=== PATIENT | male | born 1960 | race Caucasian/White ===

== ENCOUNTER 2020-07-05 14:52 | Emergency (ER) | payer BC, SELFPAY ==
[2020-07-05 15:00] VITALS: BP 168/88; PULSE 82; RESP 18; TEMP 36.2; O2SAT 96; BMI 23.1
--- NOTE | 2020-07-05 15:08 | XR_ITS ---
WS: [id number] Left hand, 3 views, 07/05/2020 Clinical Data: crush injury - tendon injury left 5th digit Comparison: None. Findings: No fractures or dislocations are seen. The soft tissues are unremarkable. The joint spaces are normal There is a small radiopaque foreign body adjacent to the pisiform. The patient's ring obscures minima l detail over the left fourth proximal phalanx. XR/XR hand LT min 3V* [id number] Impression: Negative left hand.
[2020-07-05] MEDS: tetanus-dipt-pertussis 0.5 mL SDV IM (16:06)
--- NOTE | 2020-07-05 16:47 | W.ED.WOUNDLC ---
HPI - Wound/Laceration General: Chief Complaint: Wound/Laceration Stated Complaint: left hand smash Time Seen by Provider: 07/05/20 15:14 Source: patient Mode of arrival: ambulatory Limitations: no limitations History of Present Illness: HPI narrative: 60 year old male presents with left digit laceration - reports was at work when tractor tire fell on his left hand sustaining a crush injury. He presents with a large laceration to the left fifth digit -states was wearing a glove at time of the injury. Onset (ago): minute(s) (30) Place: work Patient tetanus UTD: No Context: accidental Associated symptoms: Reports no associated symptoms; Denies chills, fever(s), nausea or vomiting Treatments prior to arrival: bandage Review of Systems General: Reports: 10 or more systems reviewed and unremarkable except in HPI and below Const: Denies: fever(s), chills or diaphoresis Eyes: Denies: blurry vision or eye redness ENMT: Denies: throat pain, dental pain or disequilibrium Card: Denies: chest pain, palpitations or irregular heart rhythm Resp: Denies: dyspnea, productive cough, non-productive cough or wheezing GI: Denies: abdominal pain, nausea or vomiting : Denies: dysuria Musc: Reports: extremity pain (left 5th digit); Denies: neck pain or back pain Skin/Breast: Denies: rash or pruritus Neuro: Denies: headache(s), weakness in extremities or behavioral changes Psych: Denies: anxiety or depression Leon/Lymph: Denies: easy bruising Physical Exam Const: COMMON NORMALS: no acute distress, patient oriented x3, healthy appearing and alert GENERAL APPEARANCE: cooperative, comfortable and well hydrated HENMT: COMMON NORMALS: normocephalic, Normal external nose present and moist oral mucous membranes HEAD & SCALP: normocephalic NOSE: Normal external nose present Eye: COMMON NORMALS: Equal, round and reactive pupils present and EOMs intact bilaterally GENERAL EYE: appearance normal, both eyes and all related structures PUPIL: Yes Equal, round and reactive pupils present Neck/C-Spine: COMMON NORMALS: full ROM and no lymphadenopathy GENERAL: Yes normal visual inspection and Yes trachea midline CERVICAL SPINE: Yes cervical ROM normal Lymph: LYMPHATIC: no lymphadenopathy noted Chest: COMMONS NORMALS: normal inspection of the chest Resp: COMMON NORMALS: normal respiratory effort and clear to auscultation bilaterally AUSCULTATION: clear to auscultation bilaterally Cardio: COMMON NORMALS: regular rhythm, S1 normal heart sound present and S2 normal heart sound present RHYTHM: regular rhythm HEART SOUNDS: S1 normal heart sound present and S2 normal heart sound present GI: COMMON NORMALS: Soft to palpation and non-tender INSPECTION: Yes normal to inspection PALPATION: Yes Soft to palpation : COMMON NORMALS: Yes no CVA tenderness BLADDER/KIDNEY EXAM: Yes no CVA tenderness Back/Pelvis: COMMON NORMALS: no CVA tenderness and thoracic and lumbar spine normal to inspection Extremity: COMMON NORMALS: normal to inspection, full ROM, capillary refill normal and no pedal edema GENERAL: Yes normal exam except as noted LEFT UPPER EXTREMITY: Yes hand & digits Left hand and digits: Yes inspection (bleeding controlled to the left 5th digit), Yes palpation (tender to the touch), Yes ROM (full flexion/extenion of the left 5th digit) and Yes neurovascular exam (distally intact) Neuro: COMMON NORMALS: patient oriented x3 and no focal motor deficits SENSORIUM/ORIENTATION: Yes alert Psych: COMMON NORMALS: mental status grossly normal, Normal thought process present and cooperative ACTIVITY/MOTOR BEHAVIOR: Yes appropriate eye contact THOUGHT PROCESS: Normal thought process present Skin: COMMON NORMALS: no rashes or lesions noted, turgor normal, no petechiae and no mottling GENERAL SKIN EXAM: no rashes or lesions noted, elasticity normal and turgor normal TRAUMA: laceration (involves the volar, radial and ulnar side - edges not approx) irregular, Y-shaped, contaminated, involves subcutaneous tissue, involves muscle tissue, motor nerve function intact and sensation intact Procedures Laceration Laceration 1: Site: hand (left 5th digit) Side (If applicable): left Size (cm): 8 Description: linear, stellate, irregular and other (contused) Depth: involves muscle layer Pre-repair: wound explored, irrigated extensively, deep structures intact, extensive debridement and wound margins revised Skin layer closed with: other (prolene) Size (cm): 5-0 Number of sutures: 16 Technique: simple, interrupted Nerve Block Nerve Block 1: Time out performed: Yes Local Anesthetic: lidocaine 1% Amount of anesthesia used (mL): 8 Side: left Nerve Blocks: digital (5th digit - hand - radial, ulnar and volar) Procedure Successful: Yes Patient Tolerated Procedure: well Complications: none Course Vital Signs: Vital signs: Vital Signs Temperature 97.2 F L 07/05/20 15:00 Pulse Rate 82 07/05/20 15:00 Respiratory Rate 18 07/05/20 15:00 Blood Pressure 168/88 07/05/20 15:00 Pulse Oximetry 96 07/05/20 15:00 MDM - Wound/Laceration Imaging Data^: Other Xray: Radiologist's impression: [address] [address] XRay Report Signed Patient: Vaughn Parmar Unit #: [id number] : 1960 Age/Sex: 60 / M ADM Date: 07/05/20 Loc: ER Room/Bed: Attending Dr: Ordering Provider/Ordering MD: Adilene Carter Date of Service: 07/05/20 Procedure(s): XR hand LT min 3V* [id number] Accession Number(s): [id number] Report Number: [id number] WS: [id number] Left hand, 3 views, 07/05/2020 Clinical Data: crush injury - tendon injury left 5th digit Comparison: None. Findings: No fractures or dislocations are seen. The soft tissues are unremarkable. The joint spaces are normal There is a small radiopaque foreign body adjacent to the pisiform. The patient's ring obscures minimal detail over the left fourth proximal phalanx. XR/XR hand LT min 3V* [id number] Impression: Negative left hand. Dictated By: Maria Del Rosario Shetty MD Signed By: Maria Del Rosario Shetty MD Signed Date/Time: 07/05/20 1551 DD/ 1549 Discharge Plan Discharge Patient Disposition: Home Clinical Impression: Crushing injury of finger of left hand Laceration of finger of left hand Qualifiers: Encounter type: initial encounter Finger: little finger Damage to nail status: without damage Foreign body presence: without foreign body Qualified Code(s): S61.217A - Laceration without foreign body of left little finger without damage to nail, initial encounter Condition: Stable Prescriptions: New hydrocodone-acetaminophen 5-325 mg tablet 1 tab PO Q4H PRN (Reason: pain) Qty: 7 RF: 0 Augmentin 875-125 mg tablet 1 tab PO BID Qty: 20 RF: 0 No Action Aleve 220 mg Tablet 440 mg PO BID RF: 0 Sudogest PE 10 mg Tablet 10 mg PO BID RF: 0 Discharge Orders: Discharge ED (Routine); Ordered 07/05/20 Ordered By: Adilene Carter Referrals: Ho Tillman, [Primary Care Provider] - Discharge Diet: Usual diet Discharge Activity: Limit activity as instructed Patient Instructions: Suture Care (ED), Laceration (ED) Activity Restrictions/Additional Instructions: No bathing or removing the dressing until follow up If the dressing becomes wet, may reapply dressing with Telfa and Kerlix Return to the emergency department if you develop increased pain, inability to feel your finger or other concerning symptoms Follow up with your primary care provider next week for wound recheck - may Take antibiotics until all gone, even if better suture out in 10-14 days Coding Level of Care Code ED Staff Submarine Warfare Officer for Magda Fwd Exam Comprehensive
[2020-07-05 17:46] VITALS: BP 171/96; PULSE 86; RESP 16; O2SAT 95
--- NOTE | 2020-07-06 10:48 | DCPLANNER ---
data processing manager had message to schedule a follow up appointment for patient with primary care for wound check. data processing manager called [facility], a follow up appointment was scheduled for Thursday, July 09, 2020 at 8:20. Patient is aware of appointment.
--- NOTE | 2020-07-20 11:42 | DCPLANNER ---
Patient had a follow up appointment scheduled for 07.09.[address] Carbajal, primary care - patient did attend appointment.
== END 2020-07-05 17:47 | disposition home or self-care (01) ==
PROVIDERS: Emergency Provider Nurse Practitioner Family; PCP Family Medicine
DX: S61.217A Laceration without foreign body of left little finger without damage to nail, initial encounter (principal); S67.197A Crushing injury of left little finger, initial encounter; W20.8XXA Other cause of strike by thrown, projected or falling object, initial encounter; Z23 Encounter for immunization
CPT/HCPCS: 12004; 12345; 73130; 90715; 99283

== ENCOUNTER 2022-06-22 18:52 | Emergency (ER) | payer BC, SELFPAY ==
[2022-06-22 19:04] VITALS: BP 184/76; PULSE 108; RESP 18; TEMP 37.4; O2SAT 97; BMI 26.4
[2022-06-22 22:37] VITALS: BP 189/115; PULSE 110; RESP 17; O2SAT 96
[2022-06-22] MEDS: ofloxacin 0.3% Op Soln 5 mL Btl 5 DROP EAR-LEFT (22:39)
[2022-06-22] MEDS: amoxicillin-clav 875-125 mg Tablet 1 TAB PO (22:44)
[2022-06-22] MEDS: HYDROcodone-acetaminophen 5-325 mg Tablet 2 TAB PO (22:44)
--- NOTE | 2022-06-22 22:44 | ED_ITS ---
HPI - Ear Problem General: Chief complaint: Ear Stated complaint: ear pain Time Seen by Provider: 06/22/22 22:07 Source: patient and family Mode of arrival: ambulatory Limitations: no limitations History of Present Illness: Patient presents emergency department today accompanied by his for evaluation treatment of left ear pain-acutely worsening today for the last couple of days. Patient denies any fever but reports chronic sinus issues. Patient is also developed left-sided facial pain as well. Patient feels he is having some swelling down into the left side of his neck. Patient states that while in the waiting room, his left ear began to drain. He took some [place] for his pain which she did not notice improved until he started having the draining. Associated symptoms: Reports ear or mastoid pain Review of Systems General: Reports: 10 or more systems reviewed and unremarkable except in HPI and below ENMT: Reports: ear or mastoid pain, ear discharge and change in hearing Physical Exam Const: COMMON NORMALS: no acute distress, patient oriented x3 and alert HENMT: OTHER: Right TM is slightly erythematous and bulging with fluid present in EAC is clear. Left TM is erythematous and covered in pus. There is pus in the distal EAC without erythema of the EAC or swelling. Patient has redness to the left side of his face but has been using a warm compress since the waiting room. Patient does have some posterior cervical swelling but no signs of swelling behind the left ear concerning for mastoiditis. No pain with movement of the left pinna. Eye: COMMON NORMALS: Equal, round and reactive pupils present, EOMs intact bilaterally and conjunctivae normal CONJUNCTIVA: Yes conjunctivae normal PUPIL: Yes Equal, round and reactive pupils present Neck/C-Spine: COMMON NORMALS: no JVD Lymph: LYMPHATIC: no lymphadenopathy noted Resp: COMMON NORMALS: normal respiratory effort, No retractions and No use of accessory muscles Cardio: COMMON NORMALS: no JVD and regular rate RATE: regular rate : COMMON NORMALS: Yes no CVA tenderness BLADDER/KIDNEY EXAM: Yes no CVA tenderness Back/Pelvis: COMMON NORMALS: no CVA tenderness, thoracic and lumbar spine normal to inspection and thoraco-lumbar ROM normal Extremity: COMMON NORMALS: normal to inspection, full ROM and no pedal edema Neuro: COMMON NORMALS: patient oriented x3 SENSORIUM/ORIENTATION: Yes alert Skin: COMMON NORMALS: no rashes or lesions noted and turgor normal GENERAL SKIN EXAM: no rashes or lesions noted and turgor normal Course Vital Signs: Vital signs: Vital Signs Temperature 99.4 F 06/22/22 19:04 Pulse Rate 110 H 06/22/22 22:37 Respiratory Rate 17 06/22/22 22:37 Blood Pressure 189/115 06/22/22 22:37 Pulse Oximetry 96 06/22/22 22:37 Oxygen Delivery Me thod 06/22/22 22:37 MDM - Ear Medical Decision Making Patient presents today complaining of left ear pain with spontaneous drainage which happened out in the waiting room. Patient has findings concerning for a left-sided otitis media and spontaneous eardrum rupture given that there was no tenderness with palpation and movement of the left pinna and without erythema and swelling of the ear canal I believe the pus is coming from the inner ear. There is most likely irritation and pain of the facial nerve on the left side as there appears to be no signs of a rash concerning for shingles and no other findings of facial abnormality. There is no signs of mastoiditis. We provided a first dose of Augmentin as well as ofloxacin here in the ER with continued prescription sent to the pharmacy to be picked up and taken as prescribed. Patient was also given 2 pain pills to take home with him with encouragement to continue using NSAIDs and warm compresses. Requested a follow-up appointment with his primary care doctor at the end of next week for recheck and reexamination for potential eardrum rupture. Until then, he is to keep his ear clean and dry. Differential Diagnosis Likely otitis externa, otitis media, foreign body in ear, ruptured TM and cerumen impaction Discharge Plan Discharge Patient Disposition: Home Clinical Impression: Left otitis media with spontaneous rupture of eardrum Condition: Stable Prescriptions: New amoxicillin-pot clavulanate 875-125 mg tablet 1 tab PO BID Qty: 20 0RF ofloxacin 0.3 % drops 10 drp otic (ear) BID Qty: 10 0RF No Action Aleve 220 mg Tablet 440 mg PO BID Sudogest PE 10 mg Tablet 10 mg PO BID hydrocodone-acetaminophen 5-325 mg tablet 1 tab PO Q4H PRN (Reason: pain) Qty: 7 0RF Augmentin 875-125 mg tablet 1 tab PO BID Qty: 20 0RF Discharge Orders: Discharge ED (Routine); Ordered 06/22/22 Ordered By: Noreen Linares Referrals: Ho Tillman, [Primary Care Provider] - Discharge Diet: Usual diet Discharge Activity: Increase activity as tolerated Patient Instructions: Ruptured Eardrum - Adult, Otitis Media - Adult Activity Restrictions/Additional Instructions: Physical exam is concerning for a left eardrum rupture given the amount of purulent material in your ear canal without signs of an ear canal infection. We will treat with oral antibiotics as well as drops but, I do recommend you be seen by your primary care doctor at the end of the week for recheck of your eardrum to further evaluate for the eardrum rupture. Try and keep your ear as clean and dry as possible. Do not submerge in water until you are reevaluated. Coding Level of Care Code ED Dipper Machine Operator for Magda Jaime
[2022-06-22 22:52] VITALS: PULSE 116; RESP 20; O2SAT 96
== END 2022-06-22 22:56 | disposition home or self-care (01) ==
PROVIDERS: Emergency Provider Physician Assistant; PCP Family Medicine
DX: H66.92 Otitis media, unspecified, left ear (principal); H72.92 Unspecified perforation of tympanic membrane, left ear
CPT/HCPCS: 99283

== ENCOUNTER → 2023-07-21 14:14 | Outpatient (BNVA) | payer BC, SELFPAY | PROVIDERS: PCP Family Medicine; Visit Provider Family Medicine | DX: I10 Essential (primary) hypertension (principal); R10.84 Generalized abdominal pain; Z76.89 Persons encountering health services in other specified circumstances; Z12.5 Encounter for screening for malignant neoplasm of prostate | CPT/HCPCS: 80053; 80061; 84443; 85025; 85651; 86140; G0103 ==